=== PATIENT | female | born 1990 | race Caucasian/White ===

== ENCOUNTER 2022-08-18 19:11 | Emergency (ER) | payer OTHER ==
[~2022-08-18] VITALS: Ht 157.5 cm; Wt 86.2 kg
[2022-08-18] MEDS ORDERED: CYCLOBENZAPRINE5 MG PO (21:54)
[2022-08-18] MEDS ORDERED: MELOXICAM7.5 MG PO (21:54)
== END 2022-08-18 22:15 | disposition home or self-care (01) ==
LOC: FSED 19:14
DX: M79.661 Pain in right lower leg (principal); S86.811A Strain of other muscle(s) and tendon(s) at lower leg level, right leg, initial encounter; F32.A Depression, unspecified; F90.9 Attention-deficit hyperactivity disorder, unspecified type
CPT/HCPCS: 93971; 99283

== ENCOUNTER 2022-08-28 00:07 | Emergency (ER) | payer OTHER ==
[~2022-08-28] VITALS: Ht 167.6 cm; Wt 87.1 kg
[~2022-08-28 00:07] MED LIST: CYCLOBENZAPRINE5 MG PO; MELOXICAM7.5 MG PO
[2022-08-28] MEDS ORDERED: FAMOTIDINE 20 MG TAB PO ONE (00:30)
[2022-08-28] MEDS ORDERED: PREDNISONE 20 MG TAB PO ONE (00:30)
[2022-08-28] MEDS ORDERED: FAMOTIDINE 20 MG TAB ONE (01:02)
[2022-08-28] MEDS ORDERED: PREDNISONE 20 MG TAB ONE (01:02)
[2022-08-28] MEDS ORDERED: PREDNISONE20 MG PO (01:03)
[2022-08-28] MEDS ORDERED: PEPCID20 MG PO (01:04)
[2022-08-28 01:18] VITALS: BP 123/87
== END 2022-08-28 01:18 | disposition home or self-care (01) ==
LOC: FSED 00:13
DX: L50.9 Urticaria, unspecified (principal); F32.A Depression, unspecified; F90.9 Attention-deficit hyperactivity disorder, unspecified type
CPT/HCPCS: 99282; J7512

== ENCOUNTER 2022-11-22 21:13 | Emergency (ER) | payer OTHER ==
[~2022-11-22] VITALS: Ht 160 cm; Wt 86.2 kg
[~2022-11-22 21:13] MED LIST changes: +PEPCID20 MG PO; +PREDNISONE20 MG PO
[2022-11-22] MEDS ORDERED: KETOROLAC TROMETHAMINE 30 MG/ML VIAL IV STA (21:39)
[2022-11-22] MEDS ORDERED: KETOROLAC TROMETHAMINE 30 MG/ML VIAL ONE (22:29)
[2022-11-22] MEDS ORDERED: NAPROSYN500 MG PO (23:21)
[2022-11-22 23:32] VITALS: O2SAT 98
== END 2022-11-22 23:32 | disposition home or self-care (01) ==
LOC: FSED 21:31
DX: M54.50 Low back pain, unspecified (principal); K57.90 Diverticulosis of intestine, part unspecified, without perforation or abscess without bleeding; F14.10 Cocaine abuse, uncomplicated; R10.9 Unspecified abdominal pain; F32.A Depression, unspecified
CPT/HCPCS: 74177; 99284; J1885